=== PATIENT | male | born 1995 | race American Indian/Alaskan Native ===

== ENCOUNTER 2021-06-08 17:48 | Emergency (ER) | payer SELFPAY ==
--- NOTE | 2021-06-08 18:34 | Emergency Department Report ---
HPI - General Chief Complaint: Psych Time Seen by Provider: 06/08/21 18:29 - HPI HPI: Charge nurse triage The patient is a 26-year-old male present with a chief complaint of suicidal ideation. The patient states he has felt suicidal for the past hour. The patient states his plan to harm himself was to wrap a cord around his neck but he did not do it. The patient states he took 1 pill of his normal daily medication 1 hour ago. Patient states he does not recall the name of the medication. Patient denies any other ingestions. ED Past Medical Hx - Surgical History Past Surgical History?: No - Family History Family history: no significant - Social History Smoking Status: Current Every Day Smoker (1/2pack/day) Substance Use Type: None (Denies illicit drug) ED Review of Systems ROS: Stated complaint: SUCIDIAL IDEATIONS Other details as noted in HPI Constitutional: no symptoms reported Eyes: denies: eye pain ENT: denies: throat pain Respiratory: no symptoms reported Cardiovascular: denies: chest pain Endocrine: no symptoms reported Gastrointestinal: denies: abdominal pain Genitourinary: denies: dysuria Musculoskeletal: denies: back pain Neurological: denies: headache Psychiatric: suicidal thoughts Physical Exam - Physical Exam Vital Signs: Vital Signs 06/08/21 17:56 Temperature 100.1 F H Pulse Rate 101 H Respiratory 18 Rate Blood Pressure 115/76 [Left] O2 Sat by Pulse 100 Oximetry Physical Exam: GENERAL: The patient is well-nourished male sitting in chair not appearing to be in acute distress. [] HEENT: Normocephalic. Atraumatic. Extraocular motions are intact. Patient has moist mucous membranes. NECK: Supple. Trachea midline CHEST/LUNGS: Clear to auscultation. There is no respiratory distress noted. HEART/CARDIOVASCULAR: Regular. There is no tachycardia. There is no gallop rub or murmur. ABDOMEN: Abdomen is soft, nontender. Patient has normal bowel sounds. There is no abdominal distention. SKIN: There is no rash. There is no edema. There is no diaphoresis. NEURO: The patient is awake, alert, and oriented. The patient is cooperative. The patient has no focal neurologic deficits. The patient has normal speech. GCS 15 MUSCULOSKELETAL: There is no evidence of acute injury. ED Course Vital Signs 06/08/21 17:56 Temperature 100.1 F H Pulse Rate 101 H Respiratory 18 Rate Blood Pressure 115/76 [Left] O2 Sat by Pulse 100 Oximetry ED Medical Decision Making - Lab Data Result diagrams: 06/08/21 18:41 06/08/21 18:41 - Differential Diagnosis Suicidal ideation Critical care attestation.: If time is entered above; I have spent that time in minutes in the direct care of this critically ill patient, excluding procedure time. ED Disposition Clinical Impression: Suicidal ideation Disposition: [address] [facility] Is pt being admited?: No Does the pt Need Aspirin: No Condition: Stable Instructions: Persistent Depressive Disorder, Adult, Suicidal Feelings: How to Help Yourself Additional Instructions: Please follow-up using the following outpatient resources. Return to the emergency department immediately should you develop thoughts of hurting yourself or others develop other new concerning symptoms, or for any other health concerns. Professional and Agency Contacts To help [facility](26/01) [place] Crisis Line: Suicide Prevention Line: Crisis Text Line: Text START to 234546 Emergency: 911 Outpatient [facility] Behavioral Health Resources: [place]: [facility] [address], [place] [address] [place]: [facility] [address] [place] [address] [place]: [facility] - [address] [place] [address] Thursday thru Thursday - 8am - 5pm [place]: [facility] Service Address: [address] [place] [address] [place]: [facility] Address: [address] [place] [address] Thursday thru Thursday- 7am-2pm [facility] Address: [address] [place] [address] Thursday thrthursday: 8:30AM-5PM Referrals: [facility] [Provider Group] - 3-5 Days
[2021-06-08 18:58] LABS: Basophils % (Auto) 0.7 % (0.0-1.8); Hematocrit 30.2 % (35.5-45.6); Hemoglobin 9.8 gm/dl (11.8-15.2); Lymphocytes # (Auto) 0.5 K/mm3 (1.2-5.4); Lymphocytes % (Auto) 10.8 % (13.4-35.0); Mean Corpuscular HGB Conc 32 % (32-34); Mean Corpuscular Volume 98 fl (84-94); Monocytes # (Auto) 0.2 K/mm3 (0.0-0.8); Monocytes % (Auto) 4.6 % (0.0-7.3); Platelet Count 152 K/mm3 (140-440); Red Blood Count 3.07 M/mm3 (3.65-5.03); Red Cell Distribution Width 14.8 % (13.2-15.2)
[2021-06-08 19:21] LABS: Alanine Aminotransferase 9 units/L (7-56); Albumin 3.9 g/dL (3.9-5); BUN/Creatinine Ratio 17; Blood Urea Nitrogen 20 mg/dL (9-20); Calcium 8.6 mg/dL (8.4-10.2); Hemolysis Index 4
--- NOTE | 2021-06-09 11:02 | Consultation ---
History of Present Illness - Reason for Consult Consult date: 06/09/21 Reason for consult: SI - History of Present Psychiatric Illness Shantal Avila is a 26y/o male patient who states he came to the ER after he says "some suicidal stuff that I shouldn't have said." The patient appears to be mentally challenged. He did say he was disabled. The patient's speech is slow. The patient is calm, and cooperative. The patient says "I really just needed my medicine." He says he was off some of it. He did not know the name of it. He says "they have my meds at [facility]. I can get them from there." He says "my momma know all the names of them." The patient did not know his mom's number nor was there a number listed in the chart to call and talk to mom. The patient says he lives with his mother. He says "she needs rent money, but I get a disability check." The patient denies SI/HI. He says "I don't feel like that no more. My problem is that I have problems sleeping without my meds." The patient did not know what psych diagnoses he had. He denies hallucinations of any kind. PAST PSYCHIATRIC HISTORY Diagnoses: Did not know Suicide attempts or Self-harm behavior: Denies Prior psychiatric hospitalizations: I think so Substance Abuse history: Patient denies Previous psychiatric medications tried: could not recall Outpatient treatment: Yes PAST MEDICAL HISTORY: Mentally delayed Family Psychiatric History: Not available SOCIAL HISTORY Marital Status: Single Living Arrangements: Lives with mom Employment Status: Disabled Access to guns/weapons: None reported Education: History of Abuse: None reported Legal History: None reported REVIEW OF SYSTEMS Constitutional: Negative for weight loss ENT: Negative for stridor Respiratory: Negative for cough or hemoptysis All other systems reviewed and are negative MENTAL STATUS EXAMINATION General Appearance and Behavior: Age appropriate, good hygiene, wearing appropriate clothes, good eye contact, cooperative polite with questioning. Cooperation: Participating/engaged Psychomotor Behavior: unremarkable and within normal limits Mood: "okay now" Affect and affective range: congruent with mood Thought Process: circumstantial, goal directed Thought Content: None Speech: Normal volume, Regular rate and rhythm Intellectual Functioning: Mentally delayed Suicidal Ideation: Denies Homicidal Ideation: Denies Hallucinations: Denies Impulse Control: Limited Insight and Judgment: Limited insight and judgment Memory: Normal Attention: Divided Orientation: Alert, oriented Assessment and Plan (1) Encounter for Mental Health Evaluation RECOMMENDATIONS d/c 1013 Case management to obtain mom's or support person number Risks, benefits and alternatives of medications discussed with the patient, questions answered and consent obtained from patient. PSYCHOTHERAPY: Supportive psychotherapy provided MEDICAL: Per primary team DELIRIUM PRECAUTIONS: Please re-orient patient frequently, keep lights on during the day, and minimize benzodiazepines and opiates as these medications could worsen patient's confusion. SIMPLEX OPERATOR: Per medical team DISPOSITION: Do not recommend acute inpatient psychiatric hospitalization at this time. FOLLOW-UP: will sign off. Thank you for the consult. Please contact with any questions and/or concerns. Case staffed with Dr. Will Mental Status Exam - Vital signs Last Vital Signs Temp 98.2 F 06/09/21 09:52 Pulse 90 06/09/21 09:52 Resp 20 06/09/21 09:52 BP 110/59 06/09/21 09:52 Pulse Ox 98 06/09/21 09:52 Results Result Diagrams: 06/08/21 18:41 06/08/21 18:41 Abnormal lab results 06/08/21 06/08/21 06/08/21 Range/Units 18:41 18:41 18:41 RBC 3.07 L (3.65-5.03) M/mm3 Hgb 9.8 L (11.8-15.2) gm/dl Hct 30.2 L (35.5-45.6) % MCV 98 H (84-94) fl Lymph % (Auto) 10.8 L (13.4-35.0) % Lymph # (Auto) 0.5 L (1.2-5.4) K/mm3 Seg Neutrophils % 83.9 H (40.0-70.0) % Sodium 132 L (137-145) mmol/L Carbon Dioxide 19 L (22-30) mmol/L Salicylates < 0.3 L (2.8-20.0) mg/dL Acetaminophen (10.0-30.0) ug/mL 06/08/21 Range/Units 18:41 RBC (3.65-5.03) M/mm3 Hgb (11.8-15.2) gm/dl Hct (35.5-45.6) % MCV (84-94) fl Lymph % (Auto) (13.4-35.0) % Lymph # (Auto) (1.2-5.4) K/mm3 Seg Neutrophils % (40.0-70.0) % Sodium (137-145) mmol/L Carbon Dioxide (22-30) mmol/L Salicylates (2.8-20.0) mg/dL Acetaminophen 5.0 L (10.0-30.0) ug/mL All other labs normal.
--- NOTE | 2021-06-09 13:08 | Event Note ---
Date: 06/09/21 26-year-old male who presented with suicidal ideation. He was seen by my colleague and was medically cleared for psychiatric evaluation and placement. He was seen by the psychiatric team today who recommended discontinuing the 1013 and discharging the patient with outpatient follow-up. Vital signs have been reviewed and are stable. No acute events overnight. Will discharge with appropriate follow-up.
[2021-06-09 13:35] VITALS: BP 120/78
== END 2021-06-09 13:33 ==
LOC: ED 17:48
DX: R45.851 Suicidal ideations (principal); F17.200 Nicotine dependence, unspecified, uncomplicated; Z20.822 Contact with and (suspected) exposure to COVID-19
CPT/HCPCS: 36415; 80053; 85025; 99283; U0003; 80320; G0480